=== PATIENT | female | born 1980 | race Two or more races ===

== ENCOUNTER 2016-11-30 18:46 | Emergency (ER) | payer SELFPAY ==
--- NOTE | ~2016-11-30 | ER ---
PATIENT'S NAME: KAROLINA PERDOMO INES [facility] AGE: 36 Y [address] ROOM: [place] [address] LOCATION: [facility] ADMIT DATE: 11/30/2016 ER/Outpatient Report DISCHARGE DATE: 11/30/2016 FAMILY PHYSICIAN: PHYSICIAN, NO ATTENDING PHYSICIAN: Suhas Dumont TIME SEEN: 1905 hours. CHIEF COMPLAINT: Headache. HISTORY OF PRESENT ILLNESS: The patient is a 36-year-old, female, said she developed a headache on Thursday, she said it did get worse on Thursday and then much worse today. Headache has been associated with nausea, no vomiting, and no photophobia. The patient through an communications project manager states that she has been seen in the [place] ER for headaches in the past. She states that they have done CTs, which have been negative. ALLERGIES: INCLUDE PENICILLIN. CURRENT MEDICATIONS: Had taken some ibuprofen early this morning. PAST MEDICAL HISTORY: Include previous headaches. PAST SURGICAL HISTORY: Include appendectomy, cholecystectomy, , and hysterectomy. SOCIAL HISTORY: Nonsmoker. Denies alcohol use. The patient works at [employer]. REVIEW OF SYSTEMS: GENERAL: No fever or chills. HEAD AND EENT: Includes a headache, starts in the back of her head and radiates up over the top of her head. She has had no photophobia. No visual changes. No sore throat. RESPIRATORY: Negative. CARDIOVASCULAR: Negative. GASTROINTESTINAL: Nausea, no vomiting. PHYSICAL EXAMINATION: PATIENT'S NAME: KAROLINA PERDOMO [facility] AGE: 36 Y [address] ROOM: [place] [address] LOCATION: [facility] ADMIT DATE: 11/30/2016 ER/Outpatient Report DISCHARGE DATE: 11/30/2016 FAMILY PHYSICIAN: PHYSICIAN, NO ATTENDING PHYSICIAN: Suhas Dumont VITAL SIGNS: On exam, her blood pressure 147/66, her temperature is 97.8, her respiratory rate 18, pulse 74, and O2 sats at 94% on room air. GENERAL APPEARANCE: She was grimacing, but alert and oriented. HEAD: There was no temporal tenderness. EYES: Pupils were small, but equal and reactive. NECK: She had no nuchal rigidity. LUNGS: Sound clear. NEURO: Appeared oriented. Gait was normal. ASSESSMENT: Headache, probable tension related. PLAN: Toradol 60 IM, Phenergan 50 IM. The patient was observed for half hour, which at that time, her headache had not completely gone, but she felt somewhat better. The patient discharged home. Advised to find a quiet dark room. Encouraged fluids. Continue ibuprofen if needed. Follow up if headache continues. The patient was given a note for work tomorrow. BASSEM FOY FOR MD DEV SHARPE/caronl /[id number] d: 12/01/16 0227 t: 01/15/17 1547, OUTPATIENT REPORT
[2017-01-29] MEDS ORDERED: PERCOCET 5-3251 EACH PO (09:50)
== END 2016-11-30 19:58 | disposition disaster alternative care site (69) ==
LOC: GMED 18:46
DX: R51 Headache (principal); Z88.0 Allergy status to penicillin; Z90.49 Acquired absence of other specified parts of digestive tract; Z90.710 Acquired absence of both cervix and uterus
CPT/HCPCS: J1885; J2550

== ENCOUNTER → 2017-01-02 | Outpatient (CLI) | payer SELFPAY ==
[~2017-01-02] MED LIST: PERCOCET 5-3251 EACH PO
== END | disposition disaster alternative care site (69) ==
LOC: GRAD 16:27
DX: R10.30 Lower abdominal pain, unspecified (principal); N83.201 Unspecified ovarian cyst, right side; N83.202 Unspecified ovarian cyst, left side; N83.8 Other noninflammatory disorders of ovary, fallopian tube and broad ligament

== ENCOUNTER → 2017-01-29 | Day surgery (SDC) | payer SELFPAY ==
[~2017-01-29] VITALS: Ht 157.5 cm; Wt 81.7 kg
--- NOTE | ~2017-01-29 | OR ---
PATIENT'S NAME: KAROLINA PERDOMO [facility] AGE: 36 Y [address] ROOM: [place], [place] [address] [place]ATION: [facility] ADMIT DATE: 01/29/2017 OR/Procedure Report DISCHARGE DATE: FAMILY PHYSICIAN: PHYSICIAN, NO ATTENDING PHYSICIAN: Gus Nascimento SURGEON: Gus Nascimento MD SMOOTH PLATER: None. DATE OF PROCEDURE: 01/29/2017 PREOPERATIVE DIAGNOSIS: Chronic pelvic pain, suspected bilateral hydrosalpinx. POSTOPERATIVE DIAGNOSIS: Right hydrosalpinx, pelvic adhesions, no left tube and ovary. PROCEDURE: Diagnostic laparoscopy, right salpingectomy, and lysis of adhesions. ANESTHESIA: General endotracheal anesthesia. ESTIMATED BLOOD LOSS: 10 mL. CLINICAL INDICATIONS: Karolina Martinez is a 36-year-old, female, with chronic pelvic pain. Ultrasound suggested bilateral hydrosalpinx, and she has already had a hysterectomy. She desires to undergo a laparoscopy and removal of the fallopian tubes. FINDINGS: Large amount of pelvic adhesions principally on the left, completely obscuring the left pelvis at the initiation of surgery. Small adhesions about the right hydrosalpinx. Right ovary appeared normal. No left tube or ovary identified. TECHNICAL OF PROCEDURE: The patient was taken to the operating room, given general endotracheal anesthesia with good results, placed in a lithotomy position, prepped and draped in the usual fashion. Sponge stick was placed into the vagina. Marcaine was placed about the incision site. An infraumbilical skin incision was made with a scalpel. Veress insufflating needle was inserted through the incision. Veress needle was then replaced with a blunt trocar, and sleeve trocar was replaced with the laparoscope. The above-mentioned findings were identified. A 2nd port in the right lower quadrant was placed using the Marcaine for the topical anesthetic. Scalpel make the incision site and #5 port was placed in the right lower quadrant. The trocar was replaced with the with hook cautery. The adhesions on the right were released. Following which the right tube and ovary were elevated. The mesosalpinx was released using the LigaSure and a 3rd port was placed in PATIENT'S NAME: KAROLINA PERDOMO [facility] AGE: 36 Y [address] ROOM: [place], [place] [address] LOCATION: [facility] [place] ADMIT DATE: 01/29/2017 OR/Procedure Report DISCHARGE DATE: FAMILY PHYSICIAN: , MAREK ATTENDING PHYSICIAN: Gus Nacsimento the left lower quadrant. Marcaine placed about the incision site and incision with the scalpel, port placed, and trocar replaced with the EndoCatch bag. This was then introduced in the abdomen and the right fallopian tube was placed into the EndoCatch bag and retrieved through the left port. The port was reinserted, large amount of adhesions were identified. They were released using a combination of sharp and blunt dissection. The adhesion release took approximately an hour of the 90-minute case. The following release of the adhesions, the left side of the pelvis was identifiable. Pelvic sidewall was identified. We were unable to identify left tube and ovary. As such, we included the procedure. The carbon dioxide was allowed to escape the abdomen. The laparoscopic and vaginal instruments were retrieved. The stab wounds were closed with deep stitches of 0 Vicryl suture followed by a [id number] interrupted stitches of 4-0 Vicryl suture. Sponge, needle, instrument counts were correct. The patient tolerated the procedure well and was taken to recovery room in good condition. MD JULI LAM/caronl /[id number] d: t: 01/29/17 1350, OPERATIVE SUMMARY
[2017-01-29 07:08] LABS: BASOPHIL % 0.6 %; EOSINOPHIL # 0.2 K/uL (0.0-0.5); EOSINOPHIL % 3.4 %; HEMATOCRIT 41.3 % (33.0-46.0); IMMATURE GRANULOCYTE % 0.1 %; LYMPHOCYTE # 2.1 K/uL (0.8-4.0); LYMPHOCYTE % 30.3 %; MCHC 33.9 gm/dL (32.0-36.5); MCV 88.6 fl (83.0-98.0); MONOCYTE # 0.3 K/uL (0.0-1.0); MONOCYTE % 4.7 %; NEUTROPHIL # (ANC) 4.3 K/uL (1.8-7.8); NEUTROPHIL % 60.9 %; NRBC % 0 /100WBC (0-0.00); PLATELET COUNT 179 K/uL (150-450); RBC 4.66 M/uL (3.50-5.50); RDW-CV 12.6 % (11.9-14.6)
== END ==
LOC: GPOC 01-22 10:00 → GSDC 06:09
PROVIDERS: Obstetrics & Gynecology
PROC: 0UT54ZZ Resection of Right Fallopian Tube, Percutaneous Endoscopic Approach (ICD-10-PCS; principal; 2017-01-29)
DX: N70.11 Chronic salpingitis (principal); N73.6 Female pelvic peritoneal adhesions (postinfective); Z90.49 Acquired absence of other specified parts of digestive tract; Z88.0 Allergy status to penicillin; Z90.710 Acquired absence of both cervix and uterus
CPT/HCPCS: J0690; J1100; J2001; J2250; J2405; J3010; J7120